=== PATIENT | female | born 1955 | race Caucasian/White ===

== ENCOUNTER 2018-06-14 08:47 | Day surgery (SDC) | payer OTHER ==
[~2018-06-14 08:47] MED LIST: EPHEDrine SULFATE 50 MG/5 ML SYG; PHENYLephrine (100 MCG/ML) 5ML SYG; PROPOFOL 200 MG INJ
[2018-06-14] MEDS ORDERED: CEFAZOLIN 1 GM INJ (09:27)
[2018-06-14] MEDS ORDERED: LIDOCAINE 2% (SDV) 5 ML INJ (09:27)
[2018-06-14] MEDS ORDERED: MIDAZOLAM 1 MG/ML 2 ML INJ (09:27)
[2018-06-14] MEDS ORDERED: ONDANSETRON 4 MG INJ (09:27)
[2018-06-14] MEDS ORDERED: FENTAnyl 50 MCG/ML VIAL (09:27)
[2018-06-14] MEDS ORDERED: FAMOTIDINE 20 MG INJ (09:28)
[2018-06-14] MEDS: ACETAMINOPHEN 500 MG TAB PO (09:54)
[2018-06-14] MEDS ORDERED: HYDROmorphONE 1 MG/5 ML IV SYRINGE IV ×2 (10:00)
[2018-06-14] MEDS ORDERED: LABETALOL HCL 20MG INJ IV (10:00)
[2018-06-14] MEDS ORDERED: OXYCODONE/ACETAMINOPHEN (5/325) TAB PO (10:00)
[2018-06-14] MEDS ORDERED: CEFAZOLIN 2 GM/50 ML (PMX) 50 ML IVPB (10:00)
[2018-06-14] MEDS ORDERED: FENTAnyl 50 MCG/ML VIAL IV ×2 (10:00)
[2018-06-14] MEDS ORDERED: morphine (1 MG/ML) 10ML SYRINGE IV (10:00)
[2018-06-14] MEDS ORDERED: MEPERIDINE 25 MG INJ IV (10:00)
[2018-06-14] MEDS ORDERED: ALBUTEROL 0.083% (NEB) 2.5 MG/3 ML AMP HHN (10:00)
[2018-06-14] MEDS ORDERED: LACTATED RINGER'S 1,000 ML (ENTER RATE) IV* (10:00)
[2018-06-14] MEDS ORDERED: DIPHENHYDRAMINE 50 MG INJ IV (10:00)
[2018-06-14] MEDS ORDERED: ONDANSETRON 4 MG INJ IV (10:00)
[2018-06-14] MEDS ORDERED: BUPIVACAINE 0.5%/EPI (SDV) 30 ML INJ (10:25)
[2018-06-14] MEDS ORDERED: CA CHLORIDE 10% 10 ML SYRINGE (11:05)
[2018-06-14] MEDS: BUPIVACAINE 0.5% (SDV) 30 ML INJ (11:13)
[2018-06-14] MEDS: OXYCODONE/ACETAMINOPHEN (5/325) TAB PO (12:58)
== END 2018-06-14 13:30 | disposition home or self-care (01) ==
LOC: SDS 08:47
DX: G56.02 Carpal tunnel syndrome, left upper limb (principal); G56.22 Lesion of ulnar nerve, left upper limb; I10 Essential (primary) hypertension; M06.9 Rheumatoid arthritis, unspecified; E66.9 Obesity, unspecified; Z68.31 Body mass index [BMI] 31.0-31.9, adult
CPT/HCPCS: 64718